=== PATIENT | male | born 1990 | race African-American/Black ===

== ENCOUNTER 2018-11-14 03:46 | Inpatient (IN) ==
[2018-11-14 05:07] LABS: Basophils % 0.4 % (0.0-0.8); Eosinophils # 0.1 10*3/uL (0.0-0.87); Eosinophils % 0.9 % (0.00-10.9); Hematocrit 40.5 VOL% (42.0-52.0); Hemoglobin 12.6 GM/DL (14.0-18.0); Immature Granulocytes % 1.1 %; Immature Granulocytes Absolute 0.12 #; Lymphocytes # 2.2 10*3/uL (1.4-4.0); Lymphocytes % 19.6 % (21.2-54.2); Mean Corpuscular HGB Conc 31.1 GM/DL (32-36); Mean Corpuscular Volume 85.3 FL (87-102); Mean Platelet Volume 10.7 FL (9.6-12.0); Monocytes % 11.3 % (1.7-12.7); Neutrophils % 66.7 % (38.7-73.9); Platelet Count 353 T/CUMM (130-400); Red Blood Count 4.75 MC/CUMM (3.8-5.5); Red Cell Distribution Width 16.3 % (9.3-17.3); White Blood Count 11.4 T/CUMM (4-12)
[2018-11-14 05:17] LABS: Albumin 2.1 G/DL (3.4-5.0); Calcium 8.8 MG/DL (8.5-10.1); Osmolality,Calculated 262.5 MOS/KG (273-304); Total Protein 10.2 G/DL (6.4-8.3)
[2018-11-14] MEDS ORDERED: FUROSEMIDE 40 MG/4 ML VIAL IV STA ×2 (05:22→05:39)
[2018-11-14] MEDS ORDERED: ONDANSETRON 4 MG/2 ML VIAL IV PRN (07:19)
[2018-11-14] MEDS ORDERED: ACETAMINOPHEN 325 MG TABLET PO PRN (07:19)
[2018-11-14] MEDS ORDERED: PROMETHAZINE 25 MG/1 ML VIAL IM PRN (07:19)
[2018-11-14] MEDS ORDERED: MORPHINE 4 MG/1 ML VIAL IV PRN ×2 (07:19→17:42)
[2018-11-14] MEDS ORDERED: POTASSIUM CHLORIDE 20 MEQ TABLET PO STA (07:22)
[2018-11-14] MEDS ORDERED: ENOXAPARIN 40 MG/0.4 ML SYRINGE SUBCUT SCH (07:30)
[2018-11-14] MEDS ORDERED: METOPROLOL TARTRATE 5 MG/5 ML VIAL IV STA (07:40)
[2018-11-14] MEDS ORDERED: CARVEDILOL 12.5 MG TABLET PO SCH (09:00)
[2018-11-14] MEDS ORDERED: LOSARTAN 50 MG TABLET PO SCH (09:00)
[2018-11-14] MEDS: PANTOPRAZOLE 40 MG TABLET PO SCH (09:18)
[2018-11-14] MEDS: SPIRONOLACTONE 25 MG TABLET PO SCH (09:18)
[2018-11-14] MEDS: FUROSEMIDE 40 MG/4 ML VIAL IV SCH ×2 (09:24→21:06)
[2018-11-14] MEDS ORDERED: CARVEDILOL 12.5 MG TABLET PO ONE (10:39)
[2018-11-14] MEDS ORDERED: ALBUMIN 25% 50 GM in PREMIX 1 EACH IV ONE (12:28)
[2018-11-14] MEDS: SULFAMETHOX/TRIMETHOPRIM 800-160 MG TABLET PO SCH ×2 (13:30→23:33)
[2018-11-14 13:50] LABS: Albumin 1.8 G/DL (3.4-5.0)
[2018-11-14 13:53] LABS: Troponin I 0.055 NG/ML (0.00-0.045)
[2018-11-14] MEDS: KETOROLAC 30 MG/1 ML VIAL IV SCH ×2 (14:00→21:05)
[2018-11-14 15:14] LABS: Calcium 8.2 MG/DL (8.5-10.1); Osmolality,Calculated 264.5 MOS/KG (273-304)
[2018-11-14 15:30] LABS: Amylase,Body Fluid 23 U/L; LDH,Body Fluid 691 U/L; Total Protein,Body Fluid 5.8 G/DL; Triglycerides,Body Fluid 28 MG/DL
[2018-11-14] MEDS: DOBUTamine 500 MG/250 ML PREMIX IV SCH (16:00)
[2018-11-14] MEDS ORDERED: NOREPINEPHRINE 4 MG/4 ML VIAL IV ONE (16:26)
[2018-11-14] MEDS ORDERED: NOREPINEPHRINE 8 MG in SODIUM CHLORIDE 0.9% 242 ML IV PRN (16:26)
[2018-11-14] MEDS: CEFEPIME 1,000 MG in SODIUM CHLORIDE 0.9% 100 ML IV SCH ×2 (16:31→21:05)
[2018-11-14] MEDS: PHENYLEPHRINE DRIP 40 MG/250 ML PREMIX IV PRN ×2 (16:45→19:15)
[2018-11-14] MEDS ORDERED: PROPOFOL 1,000 MG/100 ML BOTTLE IV ONE (16:45)
[2018-11-14] MEDS ORDERED: VECURONIUM 10 MG VIAL IV ONE ×2 (16:45→17:32)
[2018-11-14] MEDS ORDERED: ETOMIDATE 20 MG/10 ML VIAL IV ONE ×2 (16:46→17:32)
[2018-11-14] MEDS ORDERED: EPINEPHrine 1 MG/10 ML SYRINGE ONE (17:01)
[2018-11-14 17:10] LABS: Lymphocytes,Pleural Fluid 51 %; Monocytes,Pleural Fluid 6 %; Neutrophils,Pleural Fluid 42 %; RBC,Pleural Fluid > 100000 T/CUMM
[2018-11-14 17:17] LABS: ABG Base Excess 0.8 MMOL/L (-2.5-2.5); ABG HCO3 25.1 MMOL/L (20-26); ABG Oxygen Saturation 98.8 % (95-100); ABG PCO2 52.5 MM HG (35-48); ABG PH 7.329 (7.35-7.45); ABG TCO2 24.8 MMOL/L (23-27)
[2018-11-14] MEDS ORDERED: ENOXAPARIN 60 MG/0.6 ML SYRINGE SUBCUT ONE (17:33)
[2018-11-14 17:50] LABS: Osmolality,Calculated 268.4 MOS/KG (273-304)
[2018-11-14] MEDS: fentaNYL INJ 1,250 MCG in SODIUM CHLORIDE 0.9% 225 ML IV PRN (18:00)
[2018-11-14] MEDS: VANCOMYCIN INJ 1,750 MG in SODIUM CHLORIDE 0.9% 500 ML IV SCH (18:28)
[2018-11-14] MEDS: VECURONIUM 10 MG VIAL IV PRN ×2 (18:40→22:56)
[2018-11-14 21:06] LABS: Barbiturates Screen,Urine Negative (Negative); Benzodiazepines Screen,Urine Negative (Negative); Cannabinoid Screen,Urine Negative (Negative); Opiate Screen,Urine Positive (Negative); Phencyclidine Screen,Urine Negative (Negative)
[2018-11-14] MEDS: PHENYLEPHRINE INJ 160 MG in SODIUM CHLORIDE 0.9% 234 ML IV PRN (21:35)
[2018-11-14] MEDS: PROPOFOL 1,000 MG/100 ML BOTTLE IV SCH (21:47)
[2018-11-14] MEDS: CARVEDILOL 12.5 MG TABLET PO SCH (21:50)
[2018-11-14] MEDS: LORazepam 2 MG/1 ML VIAL IV PRN (22:28)
[2018-11-14] MEDS: ASCORBIC ACID 500 MG TABLET PO SCH (23:33)
[2018-11-15] MEDS: DOBUTamine 500 MG/250 ML PREMIX IV SCH ×11 (00:01→23:16)
[2018-11-15] MEDS: PROPOFOL 1,000 MG/100 ML BOTTLE IV SCH ×3 (00:50→17:40)
[2018-11-15] MEDS: fentaNYL INJ 2,500 MCG in SODIUM CHLORIDE 0.9% 450 ML IV PRN ×2 (01:14→13:05)
[2018-11-15] MEDS: CEFEPIME 1,000 MG in SODIUM CHLORIDE 0.9% 100 ML IV SCH ×4 (02:07→20:34)
[2018-11-15] MEDS: KETOROLAC 30 MG/1 ML VIAL IV SCH ×4 (02:10→20:30)
[2018-11-15] MEDS: VANCOMYCIN INJ 1,750 MG in SODIUM CHLORIDE 0.9% 500 ML IV SCH ×2 (02:26→15:55)
[2018-11-15 02:42] LABS: ABG Base Excess 3.3 MMOL/L (-2.5-2.5); ABG HCO3 27.4 MMOL/L (20-26); ABG Oxygen Saturation 99.9 % (95-100); ABG PCO2 41.9 MM HG (35-48); ABG PH 7.432 (7.35-7.45); ABG TCO2 24.9 MMOL/L (23-27); Allen Test Positive; Pt O2 Delivery Device Ventilator
[2018-11-15 03:52] LABS: Basophils % 0.3 % (0.0-0.8); Eosinophils % 0.3 % (0.00-10.9); Hematocrit 33.5 VOL% (42.0-52.0); Hemoglobin 10.6 GM/DL (14.0-18.0); Immature Granulocytes % 1.1 %; Immature Granulocytes Absolute 0.14 #; Lymphocytes # 1.7 10*3/uL (1.4-4.0); Lymphocytes % 13.3 % (21.2-54.2); Mean Corpuscular HGB Conc 31.6 GM/DL (32-36); Mean Corpuscular Volume 84.2 FL (87-102); Mean Platelet Volume 10.9 FL (9.6-12.0); Monocytes % 7.3 % (1.7-12.7); Neutrophils % 77.7 % (38.7-73.9); Platelet Count 285 T/CUMM (130-400); Red Blood Count 3.98 MC/CUMM (3.8-5.5); Red Cell Distribution Width 16.3 % (9.3-17.3); White Blood Count 12.8 T/CUMM (4-12)
[2018-11-15 04:21] LABS: Calcium 8.6 MG/DL (8.5-10.1); Osmolality,Calculated 276.8 MOS/KG (273-304)
[2018-11-15 04:24] LABS: Risk Ratio 5.73
[2018-11-15] MEDS: VECURONIUM 10 MG VIAL IV PRN (05:24)
[2018-11-15] MEDS: SULFAMETHOX/TRIMETHOPRIM 800-160 MG TABLET PO SCH ×3 (06:24→21:02)
[2018-11-15] MEDS: NOREPINEPHRINE 16 MG in SODIUM CHLORIDE 0.9% 234 ML IV PRN (08:57)
[2018-11-15] MEDS: FUROSEMIDE 40 MG/4 ML VIAL IV SCH (09:15)
[2018-11-15] MEDS: ASCORBIC ACID 500 MG TABLET PO SCH ×2 (09:17→20:29)
[2018-11-15] MEDS: ASPIRIN EC 81 MG TABLET PO SCH (09:17)
[2018-11-15] MEDS: SPIRONOLACTONE 25 MG TABLET PO SCH (09:17)
[2018-11-15] MEDS: PANTOPRAZOLE 40 MG TABLET PO SCH (09:17)
[2018-11-15] MEDS: ENOXAPARIN 100 MG/ML SYRINGE SUBCUT SCH ×2 (09:17→20:29)
[2018-11-15] MEDS: CARVEDILOL 12.5 MG TABLET PO SCH (09:18)
[2018-11-15] MEDS ORDERED: SODIUM CHLORIDE 0.9% 250 ML IV ONE ×2 (12:13→13:42)
[2018-11-15] MEDS: PHENYLEPHRINE INJ 160 MG in SODIUM CHLORIDE 0.9% 234 ML IV PRN ×2 (13:07→23:47)
[2018-11-15] MEDS: SODIUM CHLORIDE 0.9% 1,000 ML IV SCH (14:03)
[2018-11-15] MEDS: EMTRICITAB RILPIVIR TENOFO ALA PO SCH (14:12)
[2018-11-16] MEDS: SODIUM CHLORIDE 0.9% 1,000 ML IV SCH ×4 (00:11→20:56)
[2018-11-16] MEDS: DOBUTamine 500 MG/250 ML PREMIX IV SCH ×13 (01:00→23:25)
[2018-11-16] MEDS: fentaNYL INJ 1,250 MCG in SODIUM CHLORIDE 0.9% 225 ML IV PRN (01:15)
[2018-11-16] MEDS: NOREPINEPHRINE 16 MG in SODIUM CHLORIDE 0.9% 234 ML IV PRN ×3 (01:29→22:09)
[2018-11-16] MEDS: CEFEPIME 1,000 MG in SODIUM CHLORIDE 0.9% 100 ML IV SCH ×4 (02:40→21:32)
[2018-11-16] MEDS: DOPamine 800 MG/250 ML PREMIX IV PRN ×6 (03:18→22:04)
[2018-11-16 03:38] LABS: Allen Test Positive; Pt O2 Delivery Device Ventilator
[2018-11-16 03:39] LABS: ABG Base Excess -1.9 MMOL/L (-2.5-2.5); ABG HCO3 22.8 MMOL/L (20-26); ABG Oxygen Saturation 94.2 % (95-100); ABG PCO2 46.2 MM HG (35-48); ABG PO2 83.5 MM HG (80-95); ABG TCO2 21.6 MMOL/L (23-27)
[2018-11-16 04:21] LABS: Basophils % 0.2 % (0.0-0.8); Eosinophils # 0.1 10*3/uL (0.0-0.87); Hematocrit 37.6 VOL% (42.0-52.0); Hemoglobin 12.1 GM/DL (14.0-18.0); Immature Granulocytes % 1.1 %; Immature Granulocytes Absolute 0.13 #; Lymphocytes # 1.4 10*3/uL (1.4-4.0); Lymphocytes % 11.7 % (21.2-54.2); Mean Corpuscular HGB Conc 32.2 GM/DL (32-36); Mean Platelet Volume 11.2 FL (9.6-12.0); Monocytes % 6.1 % (1.7-12.7); Neutrophils % 79.9 % (38.7-73.9); Platelet Count 324 T/CUMM (130-400); Red Blood Count 4.53 MC/CUMM (3.8-5.5); Red Cell Distribution Width 16.7 % (9.3-17.3)
[2018-11-16 04:42] LABS: Albumin 1.7 G/DL (3.4-5.0); Bilirubin,Total 1.3 MG/DL (0.2-1.0); Calcium 7.8 MG/DL (8.5-10.1); Osmolality,Calculated 272.4 MOS/KG (273-304); Total Protein 7.8 G/DL (6.4-8.3)
[2018-11-16] MEDS: SULFAMETHOX/TRIMETHOPRIM 800-160 MG TABLET PO SCH ×3 (05:58→21:31)
[2018-11-16] MEDS: fentaNYL INJ 2,500 MCG in SODIUM CHLORIDE 0.9% 450 ML IV PRN (05:58)
[2018-11-16] MEDS: PHENYLEPHRINE INJ 160 MG in SODIUM CHLORIDE 0.9% 234 ML IV PRN ×3 (07:43→23:34)
[2018-11-16] MEDS: ENOXAPARIN 100 MG/ML SYRINGE SUBCUT SCH ×2 (08:32→21:31)
[2018-11-16] MEDS: ASCORBIC ACID 500 MG TABLET PO SCH ×2 (08:32→21:31)
[2018-11-16] MEDS: ASPIRIN EC 81 MG TABLET PO SCH (08:33)
[2018-11-16] MEDS: EMTRICITAB RILPIVIR TENOFO ALA PO SCH (08:36)
[2018-11-16] MEDS: LANSOPRAZOLE ODT 30 MG TABLET PER TUBE SCH (08:36)
[2018-11-16] MEDS: PROPOFOL 1,000 MG/100 ML BOTTLE IV SCH ×2 (13:50→17:34)
[2018-11-16] MEDS ORDERED: MIDAZOLAM 2 MG/2 ML VIAL ONE (16:02)
[2018-11-16] MEDS ORDERED: MIDAZOLAM 2 MG/2 ML VIAL IV ONE (16:08)
[2018-11-17] MEDS: DOBUTamine 500 MG/250 ML PREMIX IV SCH ×8 (00:45→21:33)
[2018-11-17] MEDS: DOPamine 800 MG/250 ML PREMIX IV PRN ×5 (01:42→16:17)
[2018-11-17] MEDS: CEFEPIME 1,000 MG in SODIUM CHLORIDE 0.9% 100 ML IV SCH ×4 (01:46→21:44)
[2018-11-17 03:27] LABS: Basophils % 0.2 % (0.0-0.8); Eosinophils # 0.1 10*3/uL (0.0-0.87); Eosinophils % 0.9 % (0.00-10.9); Hematocrit 32.6 VOL% (42.0-52.0); Hemoglobin 10.3 GM/DL (14.0-18.0); Immature Granulocytes % 1.7 %; Immature Granulocytes Absolute 0.19 #; Lymphocytes # 0.9 10*3/uL (1.4-4.0); Lymphocytes % 8.2 % (21.2-54.2); Mean Corpuscular HGB Conc 31.6 GM/DL (32-36); Mean Corpuscular Volume 85.6 FL (87-102); Mean Platelet Volume 10.3 FL (9.6-12.0); Monocytes % 6.9 % (1.7-12.7); Neutrophils % 82.1 % (38.7-73.9); Platelet Count 267 T/CUMM (130-400); Red Blood Count 3.81 MC/CUMM (3.8-5.5); Red Cell Distribution Width 16.9 % (9.3-17.3); White Blood Count 11.4 T/CUMM (4-12)
[2018-11-17 03:39] LABS: ABG Base Excess -6.5 MMOL/L (-2.5-2.5); ABG HCO3 19.1 MMOL/L (20-26); ABG Oxygen Saturation 96.3 % (95-100); ABG PCO2 47.8 MM HG (35-48); ABG PH 7.249 (7.35-7.45); ABG PO2 97.2 MM HG (80-95); ABG TCO2 19.2 MMOL/L (23-27)
[2018-11-17 04:00] LABS: Calcium 7.4 MG/DL (8.5-10.1); Osmolality,Calculated 264.9 MOS/KG (273-304)
[2018-11-17] MEDS: SODIUM CHLORIDE 0.9% 1,000 ML IV SCH ×2 (06:24→17:04)
[2018-11-17] MEDS: SULFAMETHOX/TRIMETHOPRIM 800-160 MG TABLET PO SCH (06:30)
[2018-11-17] MEDS: PHENYLEPHRINE INJ 160 MG in SODIUM CHLORIDE 0.9% 234 ML IV PRN ×2 (06:59→18:45)
[2018-11-17] MEDS: NOREPINEPHRINE 16 MG in SODIUM CHLORIDE 0.9% 234 ML IV PRN ×2 (07:03→15:39)
[2018-11-17] MEDS ORDERED: MAGNESIUM SULF RIDER 4 GM in PREMIX 1 EACH IV PRN (07:38)
[2018-11-17] MEDS: fentaNYL INJ 2,500 MCG in SODIUM CHLORIDE 0.9% 450 ML IV PRN (07:44)
[2018-11-17] MEDS: EMTRICITAB RILPIVIR TENOFO ALA PO SCH (09:44)
[2018-11-17] MEDS: MAGNESIUM SULF RIDER 2 GM in PREMIX 1 EACH IV PRN ×2 (09:45→12:30)
[2018-11-17] MEDS: ENOXAPARIN 100 MG/ML SYRINGE SUBCUT SCH (09:45)
[2018-11-17] MEDS: ASCORBIC ACID 500 MG TABLET PO SCH ×2 (09:45→21:46)
[2018-11-17] MEDS: ASPIRIN EC 81 MG TABLET PO SCH (09:45)
[2018-11-17] MEDS: LANSOPRAZOLE ODT 30 MG TABLET PER TUBE SCH (09:46)
[2018-11-17] MEDS: PROPOFOL 1,000 MG/100 ML BOTTLE IV SCH ×2 (12:30→17:05)
[2018-11-17] MEDS ORDERED: SULFAMETHOX/TRIMETHOPRIM 800-160 MG TABLET PO SCH (14:00)
[2018-11-17] MEDS: METOCLOPRAMIDE 10 MG/2 ML VIAL IV SCH (17:25)
[2018-11-17] MEDS: FAMOTIDINE 20 MG/2 ML VIAL IV SCH (17:31)
[2018-11-17] MEDS: DEXMEDETOMIDINE 200 MCG in SODIUM CHLORIDE 0.9% 48 ML IV PRN ×2 (17:38→21:32)
[2018-11-17] MEDS ORDERED: FAMOTIDINE 20 MG/2 ML VIAL IV SCH (21:00)
[2018-11-18] MEDS: DEXMEDETOMIDINE 200 MCG in SODIUM CHLORIDE 0.9% 48 ML IV PRN ×3 (00:14→04:16)
[2018-11-18] MEDS: DOBUTamine 500 MG/250 ML PREMIX IV SCH ×9 (00:40→22:35)
[2018-11-18] MEDS: METOCLOPRAMIDE 10 MG/2 ML VIAL IV SCH ×4 (00:56→18:06)
[2018-11-18] MEDS: NOREPINEPHRINE 16 MG in SODIUM CHLORIDE 0.9% 234 ML IV PRN ×4 (01:58→23:26)
[2018-11-18] MEDS: fentaNYL INJ 2,500 MCG in SODIUM CHLORIDE 0.9% 450 ML IV PRN ×2 (01:59→16:58)
[2018-11-18] MEDS: DOPamine 800 MG/250 ML PREMIX IV PRN ×8 (02:35→22:28)
[2018-11-18 03:51] LABS: ABG Base Excess -8.9 MMOL/L (-2.5-2.5); ABG HCO3 17.3 MMOL/L (20-26); ABG Oxygen Saturation 92.5 % (95-100); ABG PH 7.258 (7.35-7.45); ABG PO2 72.1 MM HG (80-95); ABG TCO2 16.3 MMOL/L (23-27)
[2018-11-18 04:24] LABS: Calcium 7.4 MG/DL (8.5-10.1); Osmolality,Calculated 262.2 MOS/KG (273-304)
[2018-11-18] MEDS: FAMOTIDINE 20 MG/2 ML VIAL IV SCH (05:19)
[2018-11-18 05:57] LABS: Basophils % 0.1 % (0.0-0.8); Eosinophils % 0.3 % (0.00-10.9); Hematocrit 34.6 VOL% (42.0-52.0); Immature Granulocytes % 1.8 %; Immature Granulocytes Absolute 0.25 #; Lymphocytes # 0.6 10*3/uL (1.4-4.0); Lymphocytes % 4.1 % (21.2-54.2); Mean Corpuscular HGB Conc 31.8 GM/DL (32-36); Mean Corpuscular Volume 84.8 FL (87-102); Mean Platelet Volume 11.3 FL (9.6-12.0); Monocytes % 3.3 % (1.7-12.7); Neutrophils % 90.4 % (38.7-73.9); Platelet Count 329 T/CUMM (130-400); Red Blood Count 4.08 MC/CUMM (3.8-5.5); Red Cell Distribution Width 16.8 % (9.3-17.3); White Blood Count 14.1 T/CUMM (4-12)
[2018-11-18 06:21] LABS: Band Neutrophils 1 % (0-10); Lymphocytes 3 % (20-55); Platelet Estimate Adequate; Segmented Neutrophils 94 % (50-85); Total Cells Counted 100
[2018-11-18] MEDS: CEFEPIME 1,000 MG in SODIUM CHLORIDE 0.9% 100 ML IV SCH ×3 (07:31→22:39)
[2018-11-18] MEDS: LORazepam 2 MG/1 ML VIAL IV PRN ×3 (07:33→22:53)
[2018-11-18] MEDS ORDERED: levETIRAcetam 500 MG/5 ML VIAL IV ONE (07:47)
[2018-11-18] MEDS ORDERED: SODIUM BICARBONATE 50 MEQ/50 ML VIAL IV ONE (08:15)
[2018-11-18] MEDS: PHENYLEPHRINE INJ 160 MG in SODIUM CHLORIDE 0.9% 234 ML IV PRN ×2 (08:49→22:38)
[2018-11-18] MEDS: ENOXAPARIN 100 MG/ML SYRINGE SUBCUT SCH (11:10)
[2018-11-18] MEDS: EMTRICITAB RILPIVIR TENOFO ALA PO SCH (11:11)
[2018-11-18] MEDS: ASPIRIN CHEW 81 MG TABLET PO SCH (11:19)
[2018-11-18] MEDS: ASCORBIC ACID 500 MG TABLET PO SCH ×2 (11:20→22:34)
[2018-11-18] MEDS ORDERED: CALCIUM CHLORIDE 1,000 MG/10 ML SYRINGE IV ONE (12:35)
[2018-11-18] MEDS ORDERED: DEXTROSE 50% 25 GM/50 ML SYRINGE IV ONE (12:35)
[2018-11-18] MEDS ORDERED: SODIUM BICARBONATE 50 MEQ/50 ML SYRINGE IV ONE ×2 (12:35→16:27)
[2018-11-18] MEDS ORDERED: EPINEPHrine 1 MG/ML VIAL IV ONE (12:35)
[2018-11-18] MEDS ORDERED: ATROPINE 1 MG/10 ML SYRINGE IV ONE (12:35)
[2018-11-18] MEDS: PHENYLEPHRINE DRIP 40 MG/250 ML PREMIX IV PRN ×2 (15:46→20:34)
[2018-11-18] MEDS ORDERED: EPINEPHrine 1 MG/10 ML SYRINGE ONE (16:27)
[2018-11-18] MEDS ORDERED: ATROPINE 1 MG/10 ML SYRINGE ONE (16:27)
[2018-11-18] MEDS ORDERED: LORazepam 2 MG/1 ML VIAL ONE (22:50)
[2018-11-19] MEDS: METOCLOPRAMIDE 10 MG/2 ML VIAL IV SCH ×4 (00:11→19:36)
[2018-11-19] MEDS: DOBUTamine 500 MG/250 ML PREMIX IV SCH ×9 (00:30→15:30)
[2018-11-19] MEDS: DOPamine 800 MG/250 ML PREMIX IV PRN ×7 (00:43→13:22)
[2018-11-19 03:27] LABS: ABG Base Excess -12.1 MMOL/L (-2.5-2.5); ABG Oxygen Saturation 97.1 % (95-100); ABG PCO2 45.3 MM HG (35-48); ABG TCO2 15.2 MMOL/L (23-27)
[2018-11-19 03:28] LABS: Basophils % 0.1 % (0.0-0.8); Eosinophils # 0.1 10*3/uL (0.0-0.87); Eosinophils % 0.3 % (0.00-10.9); Hematocrit 33.7 VOL% (42.0-52.0); Hemoglobin 10.4 GM/DL (14.0-18.0); Immature Granulocytes % 1.6 %; Immature Granulocytes Absolute 0.24 #; Lymphocytes # 0.5 10*3/uL (1.4-4.0); Lymphocytes % 3.5 % (21.2-54.2); Mean Corpuscular HGB Conc 30.9 GM/DL (32-36); Mean Platelet Volume 10.4 FL (9.6-12.0); Monocytes % 2.6 % (1.7-12.7); NRBC # 0.02 10*3/uL; Neutrophils % 91.9 % (38.7-73.9); Platelet Count 311 T/CUMM (130-400); Red Blood Count 3.92 MC/CUMM (3.8-5.5); Red Cell Distribution Width 17.2 % (9.3-17.3); White Blood Count 15.1 T/CUMM (4-12)
[2018-11-19 03:29] LABS: ABG PH 7.167 (7.35-7.45)
[2018-11-19] MEDS ORDERED: SODIUM BICARBONATE 50 MEQ/50 ML VIAL IV ONE ×2 (03:33→07:27)
[2018-11-19] MEDS ORDERED: LORazepam 2 MG/1 ML VIAL ONE ×3 (03:41→15:47)
[2018-11-19 03:51] LABS: Calcium 7.2 MG/DL (8.5-10.1); Osmolality,Calculated 258.8 MOS/KG (273-304)
[2018-11-19] MEDS: LORazepam 2 MG/1 ML VIAL IV PRN ×2 (03:52→08:25)
[2018-11-19 04:22] LABS: Band Neutrophils 3 % (0-10); Lymphocytes 4 % (20-55); Myelocytes 2 %; Segmented Neutrophils 88 % (50-85)
[2018-11-19 04:24] LABS: Platelet Estimate Normal; Polychromasia Few; Reactive Lymphocytes Few
[2018-11-19 04:25] LABS: Total Cells Counted 100
[2018-11-19] MEDS: fentaNYL INJ 2,500 MCG in SODIUM CHLORIDE 0.9% 450 ML IV PRN (05:05)
[2018-11-19] MEDS ORDERED: FAMOTIDINE 20 MG/2 ML VIAL IV SCH (05:30)
[2018-11-19] MEDS: CEFEPIME 1,000 MG in SODIUM CHLORIDE 0.9% 100 ML IV SCH ×2 (06:00→13:31)
[2018-11-19] MEDS: NOREPINEPHRINE 16 MG in SODIUM CHLORIDE 0.9% 234 ML IV PRN ×2 (06:22→13:20)
[2018-11-19] MEDS: PHENYLEPHRINE INJ 160 MG in SODIUM CHLORIDE 0.9% 234 ML IV PRN ×2 (06:38→14:07)
[2018-11-19 07:07] LABS: ABG Base Excess -11.2 MMOL/L (-2.5-2.5); ABG HCO3 16.9 MMOL/L (20-26); ABG Oxygen Saturation 95.3 % (95-100); ABG PCO2 47.4 MM HG (35-48); ABG PO2 89.1 MM HG (80-95); ABG TCO2 18.4 MMOL/L (23-27)
[2018-11-19 07:09] LABS: ABG PH 7.171 (7.35-7.45)
[2018-11-19] MEDS: ASPIRIN CHEW 81 MG TABLET PO SCH (08:40)
[2018-11-19] MEDS: EMTRICITAB RILPIVIR TENOFO ALA PO SCH (08:40)
[2018-11-19] MEDS: ASCORBIC ACID 500 MG TABLET PO SCH (08:41)
[2018-11-19] MEDS: DEXMEDETOMIDINE 200 MCG in SODIUM CHLORIDE 0.9% 48 ML IV PRN ×2 (08:42→09:50)
[2018-11-19] MEDS: ENOXAPARIN 100 MG/ML SYRINGE SUBCUT SCH (10:45)
[2018-11-19] MEDS: DEXMEDETOMIDINE 400 MCG in SODIUM CHLORIDE 0.9% 96 ML IV PRN ×2 (11:17→14:07)
[2018-11-19] MEDS ORDERED: MORPHINE 4 MG/1 ML VIAL IV ONE (15:35)
[2018-11-19] MEDS ORDERED: LORazepam 2 MG/1 ML VIAL IV ONE ×2 (15:35→16:15)
[2018-11-19 18:39] VITALS: BP 15/12
== END 2018-11-19 16:31 | disposition expired | DRG 291 ==
LOC: N.EDINP 03:46 → N.ED 03:46 → N.5E 07:40 → SUATTDRO 11:33 → N.ICU 13:09
PROVIDERS: ADMIT Internal Medicine Cardiovascular Disease; ATTEND Family Medicine